=== PATIENT | female | born 1975 | race African-American/Black ===

== ENCOUNTER 2019-03-19 07:49 | Emergency (ER) | payer SELFPAY ==
[~2019-03-19] VITALS: Ht 177.8 cm; Wt 114.1 kg
--- NOTE | 2019-03-19 08:08 | PHYS DOC ---
Past History Past Medical History: CVA Alcohol Use: None Drug Use: None Adult General HPI HPI Patient is a 44-year-old female presents with left facial droop and left arm weakness that started approximately 30 minutes ago. Patient had some numbness and tingling in her left upper extremity and lower extremity last evening. Seemed to improve with aspirin. She had a stroke approximately one year ago and was given TPA for that with symptom improvement. She denies any headache or vision changes.[] Review of Systems Review of Systems Constitutional: Denies fever or chills [] Eyes: Denies change in visual acuity, redness, or eye pain [] HENT: Denies nasal congestion or sore throat [] Respiratory: Denies cough or shortness of breath [] Cardiovascular: No Chest pain or palpitations[] GI: Denies abdominal pain, nausea, vomiting, bloody stools or diarrhea [] : Denies dysuria or hematuria [] Musculoskeletal: Denies back pain or joint pain [] Integument: Denies rash or skin lesions [] Neurologic: Denies headache, see history of present illness[] Endocrine: Denies polyuria or polydipsia [] All other systems were reviewed and found to be within normal limits, except as documented in this note. Physical Exam Physical Exam Constitutional: Well developed, well nourished, no acute distress, non-toxic appearance. [] HENT: Normocephalic, atraumatic, bilateral external ears normal, oropharynx moist, no oral exudates, nose normal. [] Eyes: PERRLA, EOMI, conjunctiva normal, no discharge. [] Neck: Normal range of motion, no tenderness, supple, no stridor. [] Cardiovascular:Heart rate regular rhythm, no murmur [] Lungs & Thorax: Bilateral breath sounds clear to auscultation [] Abdomen: Bowel sounds normal, soft, no tenderness, no masses, no pulsatile masses. [] Skin: Warm, dry, no erythema, no rash. [] Back: No tenderness, no CVA tenderness. [] Extremities: No tenderness, no cyanosis, no clubbing, ROM intact, no edema. [] Neurologic: Alert and oriented X 3, See NIHSS. [] Psychologic: Affect normal, judgement normal, mood normal. [] EKG EKG EKG shows a sinus rhythm at 61 bpm, left axis at -25, QTC, no ST elevations. No atrial fibrillation. No old EKG available for comparison. Interpreted by me at 0816[] Radiology/Procedures Radiology/Procedures PROCEDURE: CT CODE STROKE HEAD WO CT scan of the head without contrast 03/19/2019 Clinical History: Left-sided numbness. Left facial droop and left arm weakness. Technique: Unenhanced, contiguous, 5 mm axial sections were obtained through the head. One or more of the following individualized dose reduction techniques were utilized for this study: 1. Automated exposure control. 2. Adjustment of the mA and/or kV according to patient size. 3. Use of iterative reconstruction technique. Findings: The ventricles and sulci are within normal limits in size and configuration. No focal area of abnormal attenuation is seen involving the brain parenchyma. No extra-axial fluid collection is seen. No skull fracture is seen. Impression: No acute intracranial abnormality is seen.[] Course & Med Decision Making Course & Med Decision Making Pertinent Labs and Imaging studies reviewed. (See chart for details) ED course: Patient arrived, was placed in bed. She had a quick exam that showed the left facial droop as well as left arm weakness, due to concern for stroke detailed exam was delayed in order to get her to CT as quickly as possible. She was transported to and from CT with any complications. After the return of the CT findings a more detailed exam was performed that showed the NIH stroke scale as noted in the chart. Due to her previous history of stroke, consultation was made with [facility] neurology service who was uncertain, given that she had similar symptoms with her previous stroke, that this may be a recrudescence, however they've also agreed that was reasonable to give TPA. After verbal consent with risks and benefits explained, TPA was administered. Consultation was made with the hospitalist service who except the patient in transfer to [facility] due to having neurology as well as an ICU available, that was not available here at [facility]. Medical decision making: Concerned about CVA given the patient having 5 points on her NIH stroke scale, she stuttered on some of the words for the nursing staff during that part of the exam so may have 6 points. Critical care time of 45 minutes for direct patient care, evaluation of laboratory and imaging studies, as well as consultation with other services.[] Dragon Disclaimer Dragon Disclaimer This electronic medical record was generated, in whole or in part, using a voice recognition dictation system. Departure Departure: Impression: Primary Impression: Stroke Disposition: 05 TRANSFER OTHER Admitting Physician: Joshua De Jesus Condition: IMPROVED Referrals: PCP,NO (PCP) NIHSS - ED NIH Stroke Scale: NIH Stroke Scale Response (Comments) Value Level of Consciousness: 0 Alert/Responsive 0 LOC Questions: 0 Answers both correctly 0 LOC Commands: 0 Performs both tasks 0 Best Gaze: 0 Normal 0 Visual: 0 No visual loss 0 Facial Palsy: 2 Partial paralysis 2 Motor - Left Arm 1 Drifts, but can hold 1 Motor - Right Arm 0 No drift 0 Motor - Left Leg 1 Drift but can hold 1 Motor: Right Leg 0 No drift 0 Sensory: 1 Mid to moderate loss 1 Best Language: 0 Normal 0 Dysathria: 0 Normal 0 Extinction and Inattention: 0 Normal 0 Total 5 Problem Qualifiers Primary Impression: Stroke CVA mechanism: unspecified Qualified Codes: I63.9 - Cerebral infarction, unspecified HELEN ETIENNE DO March 19, 2019 08:08
--- NOTE | 2019-03-19 08:19 | EKG ---
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
--- NOTE | 2019-03-19 08:19 | RAD ---
CT scan of the head without contrast 03/19/2019 Clinical History: Left-sided numbness. Left facial droop and left arm weakness. Technique: Unenhanced, contiguous, 5 mm axial sections were obtained through the head. One or more of the following individualized dose reduction techniques were utilized for this study: 1. Automated exposure control. 2. Adjustment of the mA and/or kV according to patient size. 3. Use of iterative reconstruction technique. Findings: The ventricles and sulci are within normal limits in size and configuration. No focal area of abnormal attenuation is seen involving the brain parenchyma. No extra-axial fluid collection is seen. No skull fracture is seen. Impression: No acute intracranial abnormality is seen. This result was called to Dr. Hernandez at 0815 hours. Electronically signed by: Delbert Dodd MD (03/19/2019 8:16 AM) [facility]
[2019-03-19 08:45] LABS: HEMATOCRIT 42.1 % (36.0-47.0); HEMOGLOBIN 13.8 g/dL (12.0-15.5); RED CELL DISTRIBUTION WIDTH 14.3 % (11.5-14.5)
[2019-03-19] MEDS ORDERED: ALTEPLASE 9 MG IV ONE (08:45)
[2019-03-19] MEDS ORDERED: ALTEPLASE 81 MG IV SCH (08:45)
[2019-03-19] MEDS ORDERED: IV NORMAL SALINE 50ML 50 ML IV ONE (08:45)
[2019-03-19] MEDS: LABETALOL 20 MG/4 ML DISP.SYRIN. IV PRN ×2 (08:47→09:21)
[2019-03-19 08:55] LABS: PREG TEST PT QUAL NEGATIVE (NEG)
[2019-03-19 08:56] LABS: CALCIUM 8.3 mg/dL (8.5-10.1); CREATININE 0.9 mg/dL (0.6-1.0); GFR 81.6
[2019-03-19 09:54] VITALS: BP 133/91
== END 2019-03-19 10:03 | disposition short-term general hospital (02) ==
LOC: ER 07:49
DX: I63.9 Cerebral infarction, unspecified (principal); Z86.73 Personal history of transient ischemic attack (TIA), and cerebral infarction without residual deficits
CPT/HCPCS: 36415; 37195; 70450; 80048; 82947; 84484; 84702; 84703; 85027; 85610; 85730; 93005; 99285; J2997; J3490

== ENCOUNTER 2021-02-09 07:21 | Emergency (ER) | payer OTHER ==
[~2021-02-09] VITALS: Ht 177.8 cm; Wt 112.9 kg
--- NOTE | 2021-02-09 08:06 | PHYS DOC ---
Past History Past Medical History: CVA, Diabetes, High Cholesterol Past Surgical History: Cholecystectomy, Tubal ligation Additional Past Surgical Histo: x5 Alcohol Use: None Drug Use: None Adult General Chief Complaint Chief Complaint: HEADACHE HPI HPI Patient is a 46-year-old female presenting via POV for headache. States she suffered a work-related fall approximately 1 week ago hitting her head. 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 States she has been having ongoing postconcussive symptoms primarily headache. 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 States she has taken ibuprofen and Tylenol occasionally, last of which was yesterday. She has been previously prescribed Alvaton in the past week but has been taking this sparingly as she is afraid of getting addicted. She admits having numerous imaging studies of her head at different facilities all of which have been negative for any intracranial pathology. Is here today for pain control. Denies fever, photophobia, vision changes, chest pain, shortness of breath, abdominal pain, motor or sensory function changes, no neuro symptoms. She is frustrated, she wants to return to work but unsure when she can physically do so due to postconcussive symptoms. Review of Systems Review of Systems Fourteen body systems of review of systems have been reviewed. 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 HENT: Normocephalic, atraumatic, bilateral external ears normal, oropharynx moist, no oral exudates, nose normal. Eyes: PERRLA, EOMI, conjunctiva normal, no discharge. Neck: Normal range of motion, no tenderness, supple, no stridor. Cardiovascular: Heart rate regular, sinus rhythm, no murmurs rubs or gallops Lungs & Thorax: Bilateral breath sounds clear to auscultation Abdomen: Bowel sounds normal, soft, no tenderness, no masses, no pulsatile masses. Nonsurgical abdomen, no peritoneal signs Skin: Warm, dry, no erythema, mild folliculitis present on anterior abdomen, she has an Dangelo wrap over the left forearm covering site of recent antifreeze exposure for which [facility] Back: No tenderness, no CVA tenderness. Extremities: No tenderness, no cyanosis, no clubbing, diminished range of motion of right upper extremity due to pain from recent work-related fall with ecchymosis present over right deltoid, no edema. Neurologic: Alert and oriented X 3, cranial nerves II through XII intact, normal motor & sensory function, no focal deficits noted. Psychologic: Anxious affect and mood Current Patient Data Vital Signs Vital Signs Date Time Temp Pulse Resp B/P (MAP) Pulse Ox O2 Delivery O2 Flow Rate FiO2 02/09/21 07:25 97.7 118 16 146/91 (109) 98 Room Air EKG EKG EKG ordered and interpreted by myself at 0804 hrs. as sinus rhythm at 67 bpm, unremarkable intervals, left axis deviation, no ischemic findings, no STEMI Radiology/Procedures Radiology/Procedures [] Heart Score C/O Chest Pain: No HEART Score for Chest Pain: HEART Score for Chest Pain Response (Comments) Value History Slighlty/Non-Suspicious 0 ECG Normal 0 Age >45 - < 65 1 Risk Factors 1 or 2 Risk Factors 1 Total 2 Risk Factors: Risk Factors: DM, Current or recent (<one month) smoker, HTN, HLP, family history of CAD, obesity. Risk Scores: Risk Factors: DM, Current or recent (<one month) smoker, HTN, HLP, family history of CAD, obesity. Course & Med Decision Making Course & Med Decision Making Hemodynamically stable patient with history and physical exam consistent with ongoing postconcussive symptoms. No central, emergent nor surgical findings today. Patient has been well worked up within the past week, no utility in further diagnostic work-up ER intervention that included IV fluids, NSAIDs, antinausea medication improved patient's symptoms. Honoring patient's history of drug abuse, joint decision to defer prescribing narcotic pain medication. Educated patient on importance of taking ibuprofen and/or Tylenol scheduled Continued supportive care practices advised. Given complexity of patient's recent medical history, I advise her to discuss when it is safe to resume work with her company physician. Strict return precautions discussed with good understanding, all questions and concerns prior to departure Zakia Disclaeva Koehler Disclaimer This electronic medical record was generated, in whole or in part, using a voice recognition dictation system. Departure Departure: Impression: Primary Impression: Post-concussion headache Disposition: 01 DC HOME SELF CARE/HOMELESS Condition: IMPROVED Referrals: PCPALAN (PCP) Patient Instructions: Concussion-SportsMed Additional Instructions: You were seen for a headache. This is likely ongoing postconcussive symptoms you are experiencing. Your symptoms improved with an NSAID, antinausea medication and gentle fluid hydration. You should return to the ED if you develop worsening pain, vision change, numbness, tingling, weakness, vomiting, fever, neck pain, or any other new or concerning symptoms. As disclose, I recommend you follow-up with your company physician for repeat evaluation this upcoming week to determine when it is safe for you to return to work AZAEL FIGUEROA DO Feb 09, 2021 08:06
[2021-02-09] MEDS ORDERED: KETOROLAC 30 MG/ML VIAL. IVP ONE (08:30)
[2021-02-09] MEDS ORDERED: PROCHLORPERAZINE 10 MG/2 ML VIAL. IV ONE (08:30)
[2021-02-09] MEDS ORDERED: diphenhydrAMINE 50 MG/ML VIAL IVP ONE (08:30)
[2021-02-09] MEDS ORDERED: IV NORMAL SALINE 500ML 500 ML IV ONE (08:30)
[2021-02-09 09:26] VITALS: BP 110/67
--- NOTE | 2021-02-09 09:34 | EKG ---
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
== END 2021-02-09 09:29 | disposition home or self-care (01) ==
LOC: ER 07:21
DX: S40.011A Contusion of right shoulder, initial encounter (principal); R51.9 Headache, unspecified; F07.81 Postconcussional syndrome; E11.9 Type 2 diabetes mellitus without complications; E78.00 Pure hypercholesterolemia, unspecified; Z86.73 Personal history of transient ischemic attack (TIA), and cerebral infarction without residual deficits; Z90.49 Acquired absence of other specified parts of digestive tract; Z98.51 Tubal ligation status; Z88.1 Allergy status to other antibiotic agents; W18.39XA Other fall on same level, initial encounter; Y93.89 Activity, other specified; Y92.89 Other specified places as the place of occurrence of the external cause; Y99.8 Other external cause status
CPT/HCPCS: 93005; 96361; 96374; 96375; 99284; J0780; J1200; J1885; J7040

== ENCOUNTER 2021-02-10 14:56 | Emergency (ER) | payer SELFPAY ==
[~2021-02-10] VITALS: Ht 175.3 cm; Wt 115.2 kg
--- NOTE | 2021-02-10 15:11 | RAD ---
CT HEAD INDICATION: Reason: stroke / Spl. Instructions: / History: COMPARISON: None Available. Exposure: One or more of the following individualized dose reduction techniques were utilized for thi s examination: 1. Automated exposure control 2. Adjustment of the mA and/or kV according to patient size 3. Use of iterative reconstruction technique TECHNIQUE: 5 mm contiguous axial images were obtained from the skull base to the vertex in both bone and soft tissue algorithm. FINDINGS: No abnormal attenuation within the brain parenchyma. No evidence of acute intracranial hemorrhage. No extra-axial fluid collections. No mass effect or midline shift. Ventricular size is appropriate. Basal cisterns are patent. No fractures identified.Harrell-white differentiation is preserved.Globes and orbits are within normal l imits. Paranasal sinuses and mastoid air cells are clear. IMPRESSION: No acute intracranial findings. FOR INTERNAL CODING PURPOSES Critical result: Findings discussed with Dr. Storey at 02/10/2021 3:09 PM. RESULT CODE: (C) Electronically signed by: Timoteo Munoz MD (02/10/2021 3:09 PM) [id number]
[2021-02-10] MEDS ORDERED: IOHEXOL 300 MG/ML 75 ML VIAL. IV ONE (15:15)
[2021-02-10] MEDS ORDERED: CONTRAST GIVEN. MC PRN (15:30)
[2021-02-10] MEDS ORDERED: ALTEPLASE 81 MG IV ONE ×2 (15:30→15:54)
[2021-02-10] MEDS ORDERED: ALTEPLASE 0 MG IV ONE (15:30)
[2021-02-10] MEDS ORDERED: LABETALOL 20 MG/4 ML DISP.SYRIN. IV PRN (15:30)
[2021-02-10] MEDS ORDERED: IV NORMAL SALINE 50ML 50 ML IV ONE (15:30)
[2021-02-10 15:38] LABS: BASO % 1 % (0-3); EOS # 0.1 x10^3/uL (0.0-0.7); EOS % 3 % (0-3); HEMATOCRIT 40.5 % (36.0-47.0); HEMOGLOBIN 13.1 g/dL (12.0-15.5); LYMPH # 1.2 x10^3/uL (1.0-4.8); LYMPH % 27 % (24-48); MEAN CORPUSCULAR HEMOGLOBIN 28 pg (25-35); MEAN CORPUSCULAR HGB CONC 32 g/dL (31-37); MEAN CORPUSCULAR VOLUME 85 fL (79-100); MONO # 0.5 x10^3/uL (0.0-1.1); MONO % 11 % (0-9); NEUT # 2.7 x10^3uL (1.8-7.7); NEUT % 59 % (31-73); PLATELET COUNT 165 x10^3/uL (140-400); RED BLOOD COUNT 4.77 x10^6/uL (3.50-5.40); RED CELL DISTRIBUTION WIDTH 13.2 % (11.5-14.5); WHITE BLOOD COUNT 4.6 x10^3/uL (4.0-11.0)
[2021-02-10 15:42] LABS: CREATININE 0.8 mg/dL (0.6-1.0); GFR 92.6
[2021-02-10] MEDS ORDERED: IOHEXOL 350 MG/ML 100 ML VIAL. IV ONE (15:45)
[2021-02-10 15:49] LABS: ALBUMIN 3.8 g/dL (3.4-5.0); ALBUMIN/GLOBULIN RATIO 1.1 (1.0-1.7); TOTAL BILIRUBIN 0.4 mg/dL (0.2-1.0); TOTAL PROTEIN 7.3 g/dL (6.4-8.2)
[2021-02-10 15:54] LABS: BARBITURATES NEG (NEG); BENZODIAZEPINES NEG (NEG); CANNABINOIDS NEG (NEG); COCAINE NEG (NEG); METHADONE NEG (NEG); OPIATES POS (NEG); PHENCYCLIDINE NEG (NEG)
[2021-02-10 15:55] LABS: AMPHETAMINE/METHAMPHETAMINE NEG (NEG)
[2021-02-10] MEDS ORDERED: ALTEPLASE 9 MG IV ONE ×2 (16:00)
--- NOTE | 2021-02-10 16:23 | RAD ---
AP chest. HISTORY: Code stroke, left-sided deficit AP view was taken of the chest. Lungs are clear. Heart is normal in size. There is no effusion. IMPRESSION: 1. No acute chest disease. Electronically signed by: Can Escobedo MD (02/10/2021 4:21 PM) [id number]
--- NOTE | 2021-02-10 16:24 | PHYS DOC ---
Past History Past Medical History: CVA, Diabetes, High Cholesterol Past Surgical History: Cholecystectomy, Tubal ligation Additional Past Surgical Histo: x5 Alcohol Use: None Drug Use: None Adult General Chief Complaint Chief Complaint: NEURO SYMPTOMS/DEFICITS [facility] Patient is a 46-year-old female past medical history of CVA who presents to the emergency room with left-sided facial droop and left-sided arm and leg weakness. This started about 30 minutes prior to arrival. Patient has had the symptoms 2 other times over the last 2 years and has received TPA each time. Patient states that this feels very similar to those episodes. Of note she did fall hitting metal shelving 1 week ago and has been having postconcussive symptoms. These have been ongoing. She did have a headache this morning. She did not have any intracranial hemorrhage or fractures from this fall. She has been seen multiple times in the emergency room over the last week for postconcussive symptoms at multiple different emergency room. Review of Systems Review of Systems Complete ROS is negative unless otherwise documented in HPI Current Medications Current Medications Current Medications Medications (Trade) Dose Ordered Sig/Hermelindo Start Time Stop Time Status Last Admin Dose Admin Alteplase, Recombinant 81 ml @ 81 mls/hr 1X ONCE 02/10/21 15:54 02/10/21 16:29 Info (Do NOT chart on this entry -- for MONITORING) 1 each PRN DAILY PRN 02/10/21 15:30 02/12/21 15:29 Iohexol (Omnipaque 300 Mg/ml) 75 ml 1X ONCE 02/10/21 15:15 02/10/21 15:17 DC Iohexol (Omnipaque 350 Mg/ml) 100 ml 1X ONCE 02/10/21 15:45 02/10/21 15:47 DC 02/10/21 16:02 100 ML Labetalol HCl (Normodyne) 10 mg PRN Q10MIN PRN 02/10/21 15:30 Sodium Chloride 50 ml @ 0 mls/hr 1X ONCE 02/10/21 15:30 02/10/21 15:37 DC Allergies Allergies Allergies Coded Allergies Type Severity Reaction Last Updated Verified erythromycin base Allergy Unknown 02/09/21 Yes Physical Exam Physical Exam General: Awake, alert, NAD. Well Nourished, well hydrated. Cooperative HEENT: Atraumatic, EOMI, PERRL, airway patent, moist oral mucosa Neck: Supple, trachea midline Respiratory: CTA bilaterally, normal effort, no wheezing/crackles CV: RRR, no murmur, cap refill <2 GI: Soft, nondistended, nontender, no masses MSK: No obvious deformities Skin: Warm, dry, intact Neuro: A&O x3, speech slurred, 5/5 strength in right upper and right lower extremities distally and proximally, 4 out of 5 strength in left upper and left lower extremities distally and proximally, left-sided lower facial droop otherwise intact cranial nerves II through XII, cerebellar testing normal Psych: Normal affect, normal mood, not suicidal or homicidal Current Patient Data Lab Results Laboratory Tests Test 02/10/21 15:07 02/10/21 15:09 02/10/21 15:30 White Blood Count 4.6 x10^3/uL (4.0-11.0) Red Blood Count 4.77 x10^6/uL (3.50-5.40) Hemoglobin 13.1 g/dL (12.0-15.5) Hematocrit 40.5 % (36.0-47.0) Mean Corpuscular Volume 85 fL (79-100) Mean Corpuscular Hemoglobin 28 pg (25-35) Mean Corpuscular Hemoglobin Concent 32 g/dL (31-37) Red Cell Distribution Width 13.2 % (11.5-14.5) Platelet Count 165 x10^3/uL (140-400) Neutrophils (%) (Auto) 59 % (31-73) Lymphocytes (%) (Auto) 27 % (24-48) Monocytes (%) (Auto) 11 % (0-9) H Eosinophils (%) (Auto) 3 % (0-3) Basophils (%) (Auto) 1 % (0-3) Neutrophils # (Auto) 2.7 x10^3uL (1.8-7.7) Lymphocytes # (Auto) 1.2 x10^3/uL (1.0-4.8) Monocytes # (Auto) 0.5 x10^3/uL (0.0-1.1) Eosinophils # (Auto) 0.1 x10^3/uL (0.0-0.7) Basophils # (Auto) 0.0 x10^3/uL (0.0-0.2) Prothrombin Time 9.9 SEC (9.4-11.4) Prothrombin Time INR 1.0 (0.9-1.1) Activated Partial Thromboplast Time 24 SEC (23-33) Sodium Level 142 mmol/L (136-145) Potassium Level 4.0 mmol/L (3.5-5.1) Chloride Level 105 mmol/L (98-107) Carbon Dioxide Level 30 mmol/L (21-32) Anion Gap 7 (6-14) Blood Urea Nitrogen 11 mg/dL (7-20) Creatinine 0.8 mg/dL (0.6-1.0) Estimated GFR (Cockcroft-Gault) 92.6 BUN/Creatinine Ratio 14 (6-20) Glucose Level 101 mg/dL (70-99) H Calcium Level 9.0 mg/dL (8.5-10.1) Total Bilirubin 0.4 mg/dL (0.2-1.0) Aspartate Amino Transferase (AST) 19 U/L (15-37) Alanine Aminotransferase (ALT) 33 U/L (14-59) Alkaline Phosphatase 54 U/L (46-116) Troponin I Quantitative < 0.017 ng/mL (0-0.055) Total Protein 7.3 g/dL (6.4-8.2) Albumin 3.8 g/dL (3.4-5.0) Albumin/Globulin Ratio 1.1 (1.0-1.7) Glucose (Fingerstick) 95 mg/dL (70-99) Urine Opiates Screen Pos (NEG) Urine Methadone Screen Neg (NEG) Urine Barbiturates Neg (NEG) Urine Phencyclidine Screen Neg (NEG) Urine Amphetamine/Methamphetamine Neg (NEG) Urine Benzodiazepines Screen Neg (NEG) Urine Cocaine Screen Neg (NEG) Urine Cannabinoids Screen Neg (NEG) Urine Ethyl Alcohol Neg (NEG) EKG EKG [] Radiology/Procedures Radiology/Procedures [] Heart Score C/O Chest Pain: N/A Risk Factors: Risk Factors: DM, Current or recent (<one month) smoker, HTN, HLP, family history of CAD, obesity. Risk Scores: Risk Factors: DM, Current or recent (<one month) smoker, HTN, HLP, family history of CAD, obesity. Course & Med Decision Making Course & Med Decision Making Pertinent Labs and Imaging studies reviewed. (See chart for details) Patient is a 46-year-old female with a history of CVA who presents the emergency room with neurologic complaints. On exam, patient has left-sided weakness, left-sided facial droop. Patient's presentation is concerning for acute stroke. Stroke protocol was set off and the patient was taken for a CT head. Glucose is normal at this time. Patient was evaluated by neurology. CBC, BMP, magnesium, troponin, EKG were ordered to evaluate for other causes of symptoms and risk factors for stroke. Patient's blood pressure is controlled at this time. Patient is within the three-hour TPA window. Patient does not have any contraindication to tPA. Of note she did have the fall last week and I have discussed this with the neurologist at [facility] who states that this is not a contraindication to TPA. [I have discussed in detail with patient/family the risks of tPA including but not limited to intracranial hemorrhage leading to , GI bleed, seizures, pulmonary edema, angioedema, anaphylaxis. We discussed the benefits of tPA and the importance of early intervention if tPA therapy is desired. Patient/Family has decided to] give tPA. CT angiogram head and neck was ordered. Patient will need to be admitted for further workup and care. Dragon Disclaimer Dragon Disclaimer This electronic medical record was generated, in whole or in part, using a voice recognition dictation system. Critical Care Note Comments Critical Care: Authorized and Performed by: Umu Storey MD Total critical care time: approximately 45 minutes Due to a high probability of clinically significant, life threatening deterior ation, the patient required my highest level of preparedness to intervene emergently and I personally spent this critical care time directly and personally managing the patient. This critical care time included obtaining a history; examining the patient; pulse oximetry; ventilator management if necessary; ordering and review of studies; arranging urgent treatment with development of a management plan; evaluation of patient's response to treatment; frequent reassessment; discussion with patient/family; and, discussions with other providers. This critical care time was performed to assess and manage the high probability of imminent, life-threatening deterioration that could result in multi-organ failure. It was exclusive of separately billable procedures and treating other patients and teaching time. Please see MDM section and the rest of the note for further information on patient assessment and treatment. Departure Departure: Impression: Primary Impression: Stroke Additional Impressions: Headache Received intravenous tissue plasminogen activator (tPA) in emergency department Disposition: 02 DC/TRF OTHER SHORT TERM HOS Condition: STABLE Referrals: PCP,NO (PCP) Problem Qualifiers UMU STOREY MD Feb 10, 2021 16:24
[2021-02-10] MEDS ORDERED: SUMAtriptan SUCC 6 MG/0.5 ML VIAL SQ ONE (16:30)
--- NOTE | 2021-02-10 16:35 | RAD ---
CTA head and CTA neck with contrast History: Left-sided numbness and weakness Technique: Axial helical images were obtained of the head and neck after the intravenous administrati on of 75 mL of Isovue-370 IV contrast. Multiplanar reconstruction was performed on an independent wo rk station including MIP imaging and 3D angiographic imaging. Comparison: none CTA head with and without contrast. Findings: Brain: The handley and white matter appears symmetrical. There is no mass effect, extra-axial fluid co llections or hydrocephalus. There is no gross bleed. Distal carotid arteries: normal caliber Vertebral basilar system normal Major cerebral arteries: normal Impression: no acute findings end impression CTA neck with contrast: Findings: Aortic arch and origin of great vessels: normal Common carotid arteries: Right: normal Left: normal Internal carotid arteries: Right: normal Left: normal Vertebral basilar system small, a normal variant There is straightening of the normal cervical lordosis is degenerative changes C-spine with multileve l central and neuroforaminal stenosis. Impression: No significant stenosis. End impression These results were called to the Emergency Department and verified by read back at 4:29 PM. PQRS Compliance Statement - Stenosis calculations for CT, MR and conventional angiography are based u radhames measurement of the distal ICA diameter in accordance with the NASCET methodology. Stenosis calcu lations for carotid ultrasound studies are derived from validated velocity criteria which are known t o correlate with the NASCET methodology. PQRS Compliance Statement: One or more of the following individualized dose reduction techniques were utilized for this examinat ion: 1. Automated exposure control 2. Adjustment of the mA and/or kV according to patient size 3. Use of iterative reconstruction technique Electronically signed by: Matteo Cruz III, MD (02/10/2021 4:33 PM) [facility]
[2021-02-10 17:00] VITALS: BP 157/87
--- NOTE | 2021-02-11 06:41 | EKG ---
[address] [address] Test Date: 2021-02-10 Test Time: 15:15:59 Pat Name: MYA HATFIELD Department: Room: Gender: F Leadite Heater: JUDY : 1975 Requested By: UMU COLLINS Order Number: [id number] Reading MD: Measurements Intervals [place] Rate: 75 P: 48 KS: 180 QRS: -15 QRSD: 100 T: 33 QT: 366 QTc: 411 Interpretive Statements SINUS RHYTHM LEFTWARD AXIS OTHERWISE NORMAL ECG RI6.02 No previous ECG available for comparison
== END 2021-02-10 17:00 | disposition short-term general hospital (02) ==
LOC: ER 14:56
DX: I63.9 Cerebral infarction, unspecified (principal); R29.810 Facial weakness; R51.9 Headache, unspecified; E11.9 Type 2 diabetes mellitus without complications; E78.00 Pure hypercholesterolemia, unspecified; Z86.73 Personal history of transient ischemic attack (TIA), and cerebral infarction without residual deficits
CPT/HCPCS: 36415; 37195; 70450; 70496; 70498; 71045; 80053; 80307; 82947; 84484; 85025; 85610; 85730; 93005; 96372; 99285; J2997; J3030; Q9967

== ENCOUNTER 2021-02-28 11:23 | Emergency (ER) | payer MEDICAID, OTHER ==
[~2021-02-28] VITALS: Ht 175.3 cm; Wt 117.0 kg
[2021-02-28] MEDS ORDERED: IV NORMAL SALINE 1,000ML 1,000 ML IV ONE (12:15)
[2021-02-28] MEDS ORDERED: ONDANSETRON PF 4 MG/2 ML VIAL. ONE (12:25)
[2021-02-28] MEDS ORDERED: PROCHLORPERAZINE 10 MG/2 ML VIAL. ONE (12:25)
[2021-02-28] MEDS ORDERED: PROCHLORPERAZINE 10 MG/2 ML VIAL. IV ONE (12:30)
[2021-02-28] MEDS ORDERED: diphenhydrAMINE 50 MG/ML VIAL IVP ONE (12:30)
[2021-02-28] MEDS ORDERED: KETOROLAC 15 MG/ML VIAL. IVP ONE (12:30)
[2021-02-28] MEDS ORDERED: DEXAMETHASONE SOD PHOS 10 MG/ML VIAL. IV ONE (12:30)
[2021-02-28] MEDS ORDERED: ONDANSETRON PF 4 MG/2 ML VIAL. IVP ONE (12:30)
[2021-02-28 12:32] LABS: BASO % 0 % (0-3); EOS # 0.1 x10^3/uL (0.0-0.7); EOS % 3 % (0-3); HEMATOCRIT 41.1 % (36.0-47.0); HEMOGLOBIN 13.3 g/dL (12.0-15.5); LYMPH # 0.9 x10^3/uL (1.0-4.8); LYMPH % 19 % (24-48); MEAN CORPUSCULAR HEMOGLOBIN 27 pg (25-35); MEAN CORPUSCULAR HGB CONC 32 g/dL (31-37); MEAN CORPUSCULAR VOLUME 84 fL (79-100); MONO # 0.6 x10^3/uL (0.0-1.1); MONO % 12 % (0-9); NEUT # 3.2 x10^3uL (1.8-7.7); NEUT % 66 % (31-73); PLATELET COUNT 207 x10^3/uL (140-400); RED BLOOD COUNT 4.89 x10^6/uL (3.50-5.40); RED CELL DISTRIBUTION WIDTH 13.6 % (11.5-14.5); WHITE BLOOD COUNT 4.9 x10^3/uL (4.0-11.0)
--- NOTE | 2021-02-28 12:35 | PHYS DOC ---
Past History Past Medical History: Diabetes, High Cholesterol, Migraines Additional Past Medical Histor: TBI Past Surgical History: Cholecystectomy, , Tubal ligation Additional Past Surgical Histo: x5 Alcohol Use: None Drug Use: None General Adult EDM: Chief Complaint: HEADACHE HPI: HPI: Patient is a 46-year-old female coming in for frontal headache that started yesterday. Patient has a history significant for a traumatic brain injury with loss of consciousness, she was then brought back to the emergency department with left-sided weakness and treated as an acute stroke and given TPA. Patient's MRI was not consistent with a stroke and she was told it was from a traumatic brain injury as she has postconcussive syndrome. Patient's home medications are not helping with the pain. Has had some nausea and vomiting, also complaining of photophobia. Review of Systems: Review of Systems: All other systems within normal limits except for as noted in the HPI Current Medications: Current Meds: Current Medications Medications (Trade) Dose Ordered Sig/Hermelindo Start Time Stop Time Status Last Admin Dose Admin Dexamethasone Sodium Phosphate (Decadron) 10 mg 1X ONCE 02/28/21 12:30 02/28/21 12:31 Diphenhydramine HCl (Benadryl) 25 mg 1X ONCE 02/28/21 12:30 02/28/21 12:31 Ketorolac Tromethamine (Toradol 15mg Vial) 15 mg 1X ONCE 02/28/21 12:30 02/28/21 12:31 Ondansetron HCl (Zofran) 4 mg STK-MED ONCE 02/28/21 12:25 02/28/21 12:25 DC Prochlorperazine Edisylate (Compazine) 10 mg STK-MED ONCE 02/28/21 12:25 02/28/21 12:26 DC Sodium Chloride 1,000 ml @ 1,000 mls/hr 1X ONCE 02/28/21 12:15 02/28/21 13:14 Allergies: Allergies: Allergies Coded Allergies Type Severity Reaction Last Updated Verified erythromycin base Allergy Unknown 02/28/21 Yes Physical Exam: PE: Constitutional: Well developed, well nourished, no acute distress, non-toxic appearance. [] HENT: Normocephalic, atraumatic, bilateral external ears normal, nose normal. [] Eyes: PERRLA, conjunctiva normal, no discharge. [] Neck: No rigidity, supple, no stridor. [] Cardiovascular: Regular rate and rhythm, brisk cap refill [] Lungs & Thorax: Non labored symmetric respirations, no tachypnea or respiratory distress [] Abdomen: Soft, nondistended. Skin: Warm, dry, no erythema, no rash. [] Back: Unremarkable Extremities: No deformities, range of motion grossly intact, no lower extremity edema [] Neurologic: Alert and oriented X 3, no focal deficits noted. [] Psychologic: Affect normal, judgement normal, mood normal. [] Current Patient Data: Vital Signs: Vital Signs Date Time Temp Pulse Resp B/P (MAP) Pulse Ox O2 Delivery O2 Flow Rate FiO2 02/28/21 11:30 98.1 80 16 114/71 (85) 98 EKG: EKG: [] Radiology/Procedures: Radiology/Procedures: CT HEAD/BRAIN WO Date: 02/28/2021 12:14 PM Clinical Indication: HEADACHE, HX TRAUMATIC BRAIN INJURY 01/2021 / [facility]. Instructions: / History: Comparison: 02/10/2021. Technique: 5 mm axial tomographic images were obtained of the head without contrast. These were viewed on brain and bone windows. One or more of the following dose reduction techniques were utilized: Automated exposure control (AEC), Adjustment of mA and/or kV according to patient size, Use of iterative reconstruction technique such as ASiR, CT scan done according to ALARA and image gently/image wisely Findings: The brain parenchyma is normal in attenuation. No intra- or extra-axial mass or fluid collection. No acute hemorrhage. The ventricles are normal in size, shape, and morphology. The handley-white matter junction is normal. The subarachnoid cisterns are patent. The visualized paranasal sinuses are normal. The visualized portions of the orbits and globes are normal. The mastoid air cells are clear. The computer science professor topogram shows no lytic lesion or fracture. Impression: No acute intracranial process. [] Heart Score: C/O Chest Pain: No Risk Factors: Risk Factors: DM, Current or recent (<one month) smoker, HTN, HLP, family history of CAD, obesity. Risk Scores: Score 0 - 3: 2.5% MACE over next 6 weeks - Discharge Home Score 4 - 6: 20.3% MACE over next 6 weeks - Admit for Clinical Observation Score 7 - 10: 72.7% MACE over next 6 weeks - Early Invasive Strategies Course & Med Decision Making: Course & Med Decision Making Pertinent Labs and Imaging studies reviewed. (See chart for details) Improved with medications. [] Dragon Disclaimer: Dragon Disclaimer: This electronic medical record was generated, in whole or in part, using a voice recognition dictation system. Departure Departure: Impression: Primary Impression: Headache Disposition: HOME / SELF CARE / HOMELESS Condition: IMPROVED Referrals: PCPALAN (PCP) Patient Instructions: Pain Relief Preoperatively and Postoperatively HILL HODGSON MD Feb 28, 2021 12:35
[2021-02-28 12:42] LABS: CREATININE 0.7 mg/dL (0.6-1.0); GFR 108.1; POTASSIUM 3.8 mmol/L (3.5-5.1)
[2021-02-28 12:54] LABS: ALBUMIN 3.7 g/dL (3.4-5.0); ALBUMIN/GLOBULIN RATIO 0.9 (1.0-1.7); MAGNESIUM 1.8 mg/dL (1.8-2.4); TOTAL BILIRUBIN 0.4 mg/dL (0.2-1.0); TOTAL PROTEIN 7.7 g/dL (6.4-8.2)
--- NOTE | 2021-02-28 12:58 | RAD ---
CT HEAD/BRAIN WO Date: 02/28/2021 12:14 PM Clinical Indication: HEADACHE, HX TRAUMATIC BRAIN INJURY 01/2021 / [facility]. Instructions: / History: Comparison: 02/10/2021. Technique: 5 mm axial tomographic images were obtained of the head without contrast. These were view ed on brain and bone windows. One or more of the following dose reduction techniques were utilized: A utomated exposure control (AEC), Adjustment of mA and/or kV according to patient size, Use of iterati ve reconstruction technique such as ASiR, CT scan done according to ALARA and image gently/image cartwright ly Findings: The brain parenchyma is normal in attenuation. No intra- or extra-axial mass or fluid collection. No acute hemorrhage. The ventricles are normal in size, shape, and morphology. The handley-white matter bart ction is normal. The subarachnoid cisterns are patent. The visualized paranasal sinuses are normal. The visualized portions of the orbits and globes are no rmal. The mastoid air cells are clear. The construction project administrator topogram shows no lytic lesion or fracture. Impression: No acute intracranial process. Electronically signed by: Aguilar Ortiz MD (02/28/2021 12:55 PM) [id number]
[2021-02-28 14:44] VITALS: BP 123/85
== END 2021-02-28 14:59 | disposition home or self-care (01) ==
LOC: ER 11:23
DX: G43.909 Migraine, unspecified, not intractable, without status migrainosus (principal); R53.1 Weakness; R11.2 Nausea with vomiting, unspecified; E11.9 Type 2 diabetes mellitus without complications; E78.00 Pure hypercholesterolemia, unspecified; Z87.820 Personal history of traumatic brain injury; F07.81 Postconcussional syndrome; Z90.49 Acquired absence of other specified parts of digestive tract; Z98.51 Tubal ligation status; Z88.1 Allergy status to other antibiotic agents
CPT/HCPCS: 36415; 70450; 80053; 83735; 85025; 96361; 96374; 96375; 99284; J0780; J1100; J1200; J1885; J2405; J7030

== ENCOUNTER 2021-04-14 12:15 | Emergency (ER) | payer SELFPAY ==
[~2021-04-14] VITALS: Ht 175.3 cm; Wt 117.0 kg
[2021-04-14 12:24] VITALS: BP 106/75
--- NOTE | 2021-04-14 13:26 | PHYS DOC ---
Past History Past Medical History: Diabetes, High Cholesterol, Migraines Additional Past Medical Histor: TBI (CASSIA ROCK APRN) Past Surgical History: Cholecystectomy, , Tubal ligation Additional Past Surgical Histo: x5 (CASSIA ROCK APRN) Alcohol Use: None Drug Use: None (CASSIA ROCK APRN) Adult General Chief Complaint Chief Complaint: SKIN PROBLEM HPI HPI Patient is a 46-year-old female who presents emergency department complaining of a wart on the left index finger and a wart on the right index finger that presented approximately 1 month ago, patient states she tried topical wart medic ations twice a day for 1 week and did not notice any difference. Patient states that they are mildly painful, no pain unless touched, they do not bleed, rates her pain when touched a 5/10 on a 1-10 pain scale. Patient denies any recent fever or chills. Patient denies other skin rashes or other skin lesions. Patient denies other physical complaints or physical concerns. Patient denies taking prescription medications, states she has no primary care physician, reports an allergy to her erythromycin. (CASSIA ROCK APRN) Review of Systems Review of Systems 14 body systems of review of systems have been reviewed. See HPI for pertinent positives and negative responses, otherwise all other systems are negative, nonpertinent or noncontributory. (CASSIA ROCK APRN) Allergies Allergies Allergies Coded Allergies Type Severity Reaction Last Updated Verified erythromycin base Allergy Unknown 02/28/21 Yes (CASSIA ROCK APRN) Physical Exam Physical Exam Constitutional: Well developed, well nourished, no acute distress, non-toxic appearance. 38-year-old female no apparent distress. HENT: Normocephalic, atraumatic. Eyes: conjunctiva normal, no discharge. Neck: Normal range of motion. Cardiovascular: No cyanosis, no management signs Lungs & Thorax: No audible adventitious breath sounds appreciated. Patient is in no respiratory distress. Skin: Warm, dry, no erythema, no rash. There is a 0.8 cm cauliflower type wound lesion to the right lateral index finger near proximal phalanx, no drainage, no bleeding appreciated, there is a 0.2 cm cauliflower-like lesion to the left index finger near medial phalanx, no drainage, no bleeding appreciated, round lesions with clearly demarcated borders. Distal cap refill less than 2 seconds of affected digits, full AROM/PROM of finger joints. No swelling, no erythema, no edema appreciated. Painful to palpation. Extremities: No tenderness, no cyanosis, no clubbing, ROM intact, no edema. Neurologic: Alert and oriented X 3, normal motor function, normal sensory functi on, no focal deficits noted. Psychologic: Affect normal, judgement normal, mood normal. (CASSIA ROCK APRN) Current Patient Data Vital Signs Vital Signs Date Time Temp Pulse Resp B/P (MAP) Pulse Ox O2 Delivery O2 Flow Rate FiO2 04/14/21 12:24 98.0 74 16 106/75 (85) 98 Room Air (CASSIA ROCK APRN) EKG EKG [] (CASSIA ROCK APRN) Radiology/Procedures Radiology/Procedures [] (CASSIA ROCK APRN) Heart Score C/O Chest Pain: No Risk Factors: Risk Factors: DM, Current or recent (<one month) smoker, HTN, HLP, family history of CAD, obesity. Risk Scores: Risk Factors: DM, Current or recent (<one month) smoker, HTN, HLP, family history of CAD, obesity. (CASSIA ROCK APRN) Course & Med Decision Making Course & Med Decision Making Pertinent Labs and Imaging studies reviewed. (See chart for details) 38-year-old female, vital signs reviewed, presents to the emergency department concerning warts on her fingers. Physical examination consistent with verruca vulgaris, and warts. Discussed with patient using [id number] topical wart medication until she is able to secure an appointment with a primary care physician. Will recommend a primary care physician to follow-up with for wart treatment. Patient was amenable to this plan. Patient gave verbal understanding discharge home instructions, follow-up with PCP soon, return to ER precautions or concerns, patient was discharged home without incident. (CASSIA ROCK APRN) Dragon Disclaimer Dragon Disclaimer This electronic medical record was generated, in whole or in part, using a voice recognition dictation system. (CASSIA ROCK APRN) Attending Co-Sign The patient was seen and interviewed as well as examined at the bedside. The chart was reviewed. The case was discussed. Agree with the plan of care. (CONSUELO BOONE DO) Departure Departure: Impression: Primary Impression: Verruca vulgaris Additional Impression: Common wart Disposition: 01 HOME / SELF CARE / HOMELESS Condition: GOOD Referrals: PCP,ALAN (PCP) JESSICA OCASIO Patient Instructions: Warts Additional Instructions: You are seen in the emergency department for common warts to your index fingers. As we discussed, please follow-up with a primary care physician for treatment, until you are able to see your primary care physician please use [id number] wart medication as directed. I am giving you a follow-up care physician recommendation for primary care MARIEL Sepulveda, however you may use any primary care physician of your choice. Please return the emergency department for worsening symptoms or other concerns. EMERGENCY DEPARTMENT GENERAL DISCHARGE INSTRUCTIONS Thank you for coming to [facility] (ED) today and trusting us with you care. We trust that you had a positivie experience in our Emergency Department. If you wish to speak to the department management, you may call the director at [phone]. YOUR FOLLOW UP INSTRUCTIONS ARE FOLLOWS: 1. Do you have a private Doctor? If you do not have a private doctor, please ask for a resource list of physicians or clinics that may be able to assist you with follow up care. 2. The Emergency Physician has interpreted your x-rays. The X-Ray specialist will also review them. If there is a change in the findings, you will be notified in 48 hours when at all possible. 3. A lab test or culture has been done, your results will be reviewed and you will be notified if you need a change in treatment. ADDITIONAL INSTRUCTIONS AND INFORMATION: 1. Your care today has been supervised by a physician who is specially trained in emergency care. Many problems require more than one evaluation for a complete diagnosis and treatment. We recommend that you schedule your follow up appointment as recommended to ensure complete treatment of you illness or injury. If you are unable to obtain follow up care and continue to have a problem, or if your condition worsens, we recommend that you return to the ED. 2. We are not able to safely determine your condition over the phone nor are we able to give sound medical advice over the phone. For these safety reasons, if you call for medical advice we will ask you to come to the ED for further evaluation. 3. If you have any questions regarding these discharge instructions please call the ED at [phone]. SAFETY INFORMATION: In the interest of safety, wellness, and injury prevention; we encourage you to wear your sealbelt, if you smoke; quite smoking, and we encourage family to use a protective helmet for bicycling and other sporting events that present an increased risk for head injury. IF YOUR SYMPTOMS WORSEN OR NEW SYMPTOMS DEVELOP, OR YOU HAVE CONCERNS ABOUT YOUR CONDITION; OR IF YOUR CONDITION WORSENS WHILE YOU ARE WAITING FOR YOUR FOLLOW UP APPOINTMENT; EITHER CONTACT YOUR PRIMARY CARE DOCTOR, THE PHYSICIAN WHOSE NAME AND NUMBER YOU WERE GIVEN, OR RETURN TO THE ED IMMEDIATELY. Problem Qualifiers CASSIA ROCK APRN Apr 14, 2021 13:26 CONSUELO BOONE DO Apr 16, 2021 18:30
== END 2021-04-14 13:30 | disposition home or self-care (01) ==
LOC: ER 12:15
DX: B07.8 Other viral warts (principal); E11.9 Type 2 diabetes mellitus without complications; E78.5 Hyperlipidemia, unspecified; Z88.1 Allergy status to other antibiotic agents; Z90.49 Acquired absence of other specified parts of digestive tract; Z98.51 Tubal ligation status
CPT/HCPCS: 99282

== ENCOUNTER 2021-05-28 17:08 | Emergency (ER) | payer SELFPAY ==
[~2021-05-28] VITALS: Ht 175.3 cm; Wt 117.0 kg
--- NOTE | 2021-05-28 17:58 | PHYS DOC ---
Past History Past Medical History: Anxiety, Diabetes, High Cholesterol, Migraines Additional Past Medical Histor: TBI Past Surgical History: Cholecystectomy, , Tubal ligation Additional Past Surgical Histo: x5 Alcohol Use: None Drug Use: None General Adult EDM: Chief Complaint: SKIN RASH/ABSCESS HPI: HPI: ".. I still having dizzy spell after my head injury back more that month ago... And it appears that had a brain injury prior to the 1 month ago.. and I got this rash.. I ve had for a years... " :' one person said it was eczema... another person said it was psoriasis... But I do not know what it is... but has not gone away ,,.,... " Patient is a 46 year old female who presents with above hx . And complaints of skin and dizzy episodes are separate complaints. Patient patient does have history of traumatic brain injury. Patient has past medical history of diabetes, elevated cholesterol, migraines, and chronic eczema/psoriasis-like rash. 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 Has been previous evaluated at the time of injury and after the injury for postconcussion syndrome. Patient states she still has episodes of dizziness. Patient states her rash has been present for years. Has been told various diagnosis is from psoriasis to eczema. Patient has used topical creams in the past that have been somewhat effective but the rash always comes back. Rash currently is localized in areas of previous surgical scars and flexor areas. Does have appearance of eczema/psoriasis. Patient denies any recent travel. No specific ill contacts. No history immunosuppression. Review of Systems: Review of Systems: Constitutional: Denies fever or chills Eyes: Denies change in visual acuity HENT: Denies nasal congestion or sore throat Respiratory: Denies cough or shortness of breath Cardiovascular: Denies chest pain or edema GI: Denies abdominal pain, nausea, vomiting, bloody stools or diarrhea : Denies dysuria Musculoskeletal: Denies back pain or joint pain Integument: Planes of a chronic rash Neurologic: Denies headache, focal weakness or sensory changes . Complains of periodic episodes of dizziness especially with movement of her head Endocrine: Denies polyuria or polydipsia Lymphatic: Denies swollen glands Psychiatric: Denies depression or anxiety Family History: Family History: Noncontributory to presentation Current Medications: Current Meds: See nursing for home meds Allergies: Allergies: Allergies Coded Allergies Type Severity Reaction Last Updated Verified erythromycin base Allergy Unknown 02/28/21 Yes Physical Exam: PE: Constitutional: no acute distress, non-toxic appearance. [] HENT: Normocephalic, atraumatic, bilateral external ears normal, oropharynx moist, no oral exudates, nose normal. [] Eyes: PERRLA, EOMI, conjunctiva normal, no discharge. [] Neck: Normal range of motion, no tenderness, supple, no stridor. [] Cardiovascular:Heart rate regular rhythm, no murmur [] Lungs & Thorax: Bilateral breath sounds equal apex with scattered wheezes auscultation [] Abdomen: Bowel sounds normal, soft, no tenderness, no masses, no pulsatile masses. Old surgery scars Skin: Warm, dry, no erythema, multiple areas of eczema/psoriasis-like rash. Back: No tenderness, no CVA tenderness. [] Extremities: No tenderness, no cyanosis, no clubbing, ROM intact, no edema. DTRs +2 patella and brachial. Junior Network Engineer equal. No drift. Does develop nystagmus with movement of head. Neurologic: Alert and oriented X 3, normal motor function, normal sensory function, no focal deficits noted. [] Psychologic: Affect anxious, judgement normal, mood normal. [] Current Patient Data: Vital Signs: Vital Signs Date Time Temp Pulse Resp B/P (MAP) Pulse Ox O2 Delivery O2 Flow Rate FiO2 05/28/21 17:13 80 16 117/81 98 Room Air EKG: EKG: [] Radiology/Procedures: Radiology/Procedures: [[address] [address] IMAGING REPORT Signed PATIENT: MYA HATFIELD DACCOUNT: [id number] : 1975 LOCATION: ER AGE: 46 SEX: F EXAM STATUS: REG ER ORD. PHYSICIAN: AMALIA MELTON MD REASON: dizzy spells, hx of head injury PROCEDURE: CT HEAD WO CONTRAST CT brain without contrast. HISTORY: Dizzy spells, history of head injury CT scan of brain was compared with a study from February 28. Sinuses are clear. A skull fracture is not identified. There is no intracranial hemorrhage or subdural hematoma. There is no mass effect or shift of the midline. Ventricles are normal in size. There has been no change from the prior study. IMPRESSION: 1. No intracranial hemorrhage or acute finding noted. PQRS Compliance Statement: One or more of the following individualized dose reduction techniques were utilized for this examination: 1. Automated exposure control 2. Adjustment of the mA and/or kV according to patient size 3. Use of iterative reconstruction technique Electronically signed by: Can Phillips MD (05/28/2021 7:23 PM) [facility] DICTATED AND SIGNED BY: CAN PHILLIPS MD DATE: 05/28/211920 CC: AMALIA MELTON MD; PCP,NO ~MTH0 0 ][place] [address] IMAGING REPORT Signed PATIENT: MYA HATFIELD DACCOUNT: [id number] : 1975 LOCATION: ER AGE: 46 SEX: F EXAM STATUS: REG ER ORD. PHYSICIAN: AMALIA MELTON MD REASON: dizzy spells, hx of head injury PROCEDURE: CT HEAD WO CONTRAST CT brain without contrast. HISTORY: Dizzy spells, history of head injury CT scan of brain was compared with a study from February 28. Sinuses are clear. A skull fracture is not identified. There is no intracranial hemorrhage or subdural hematoma. There is no mass effect or shift of the midline. Ventricles are normal in size. There has been no change from the prior study. IMPRESSION: 1. No intracranial hemorrhage or acute finding noted. PQRS Compliance Statement: One or more of the following individualized dose reduction techniques were utilized for this examination: 1. Automated exposure control 2. Adjustment of the mA and/or kV according to patient size 3. Use of iterative reconstruction technique Electronically signed by: Can Phillips MD (05/28/2021 7:23 PM) [facility] DICTATED AND SIGNED BY: CAN PHILLIPS MD DATE: 05/28/211920 CC: AMALIA MELTON MD; PCP,NO ~MTH0 0 Heart Score: C/O Chest Pain: N/A HEART Score for Chest Pain: HEART Score for Chest Pain Response (Comments) Value History Slighlty/Non-Suspicious 0 ECG Normal 0 Age >45 - < 65 1 Risk Factors 1 or 2 Risk Factors 1 Troponin < Normal Limit 0 Total 2 Risk Factors: Risk Factors: DM, Current or recent (<one month) smoker, HTN, HLP, family history of CAD, obesity. Risk Scores: Score 0 - 3: 2.5% MACE over next 6 weeks - Discharge Home Score 4 - 6: 20.3% MACE over next 6 weeks - Admit for Clinical Observation Score 7 - 10: 72.7% MACE over next 6 weeks - Early Invasive Strategies Course & Med Decision Making: Course & Med Decision Making Pertinent Labs and Imaging studies reviewed. (See chart for details) Recommend patient follow-up with dermatology. Recommend patient follow-up with neurology. Take meclizine 25 mg at 4 times a day for dizziness. Return if any concerns. Impression: 1. Psoriasis/eczema 2. Vertigo/dizziness [] Dragon Disclaimer: Zakia Disclaimer: This electronic medical record was generated, in whole or in part, using a voice recognition dictation system. Departure Departure: Referrals: PCP,NO (PCP) Scripts Meclizine Hcl (MECLIZINE HCL) 25 Mg Tablet 25 MG PO QIDPRN PRN for urizy, #30 TAB Prov: AMALIA MELTON MD 05/28/21 Zakia Disclaimer This chart was dictated in whole or in part using Voice Recognition software in a busy, high-work load, and often noisy Emergency Department environment. It may contain unintended and wholly unrecognized errors or omissions. AMALIA MELTON MD May 28, 2021 17:57
[2021-05-28] MEDS ORDERED: MECL-75 PO (19:13)
--- NOTE | 2021-05-28 19:25 | RAD ---
CT brain without contrast. HISTORY: Dizzy spells, history of head injury CT scan of brain was compared with a study from February 28. Sinuses are clear. A skull fracture is not identified. There is no intracranial hemorrhage or subdural hematoma. There is no mass effect or shif t of the midline. Ventricles are normal in size. There has been no change from the prior study. IMPRESSION: 1. No intracranial hemorrhage or acute finding noted. PQRS Compliance Statement: One or more of the following individualized dose reduction techniques were utilized for this examinat ion: 1. Automated exposure control 2. Adjustment of the mA and/or kV according to patient size 3. Use of iterative reconstruction technique Electronically signed by: Can Escobedo MD (05/28/2021 7:23 PM) [facility]
[2021-05-28 20:05] VITALS: BP 120/84
== END 2021-05-28 20:10 | disposition home or self-care (01) ==
LOC: ER 17:08
DX: R42 Dizziness and giddiness (principal); R21 Rash and other nonspecific skin eruption; F41.9 Anxiety disorder, unspecified; E11.9 Type 2 diabetes mellitus without complications; E78.00 Pure hypercholesterolemia, unspecified; G43.909 Migraine, unspecified, not intractable, without status migrainosus; Z87.820 Personal history of traumatic brain injury; Z88.1 Allergy status to other antibiotic agents
CPT/HCPCS: 70450; 99284